=== PATIENT | female | born 1985 | race Caucasian/White ===

== ENCOUNTER 2019-05-10 09:47 | Emergency (ER) | payer SELFPAY ==
[~2019-05-10] VITALS: Ht 160 cm; Wt 114.3 kg
[2019-05-10 10:01] VITALS: BP_SYST 127
--- NOTE | 2019-05-10 10:04 | NUR ---
Patient to ER bed 07 to gown for evaluation. Side rails up.
--- NOTE | 2019-05-10 10:05 | NUR ---
Patient arrived in the ED c/o lower back pain that started yesterday, pain severity 11/07. Denied any fevers or chills. Denied any UTI symptoms. Denied any recent trauma or falls. Patient stated she was lifting some boxes yesterday and moving in [id number] when she felt the pain, Taking Ibuprofen for the pain. Patient is alert and oriented x4, respirations even and unlabored, speaking in full sentences, ambulating with a steady gait. VS WNL. Denied any respiratory distress at this time. Informed of the wait time. Instructed to notify ED staff for any changes in condition while waiting to be seen by a provider. Patient verbalized understanding.
--- NOTE | 2019-05-10 10:08 | NUR ---
ER at bedside examining patient.
--- NOTE | 2019-05-10 10:10 | NUR ---
Patient given written and verbal discharge instructions and verbalizes understanding. ER MD discussed with patient the results and treatment provided. Patient in stable condition. ID arm band removed. Rx of Tramadol and Naproxen given. Patient educated on pain management and to follow up with PMD. Pain Scale 0/10. Opportunity for questions provided and answered. Medication side effect fact sheet provided.
[2019-05-10 10:21] VITALS: BP_SYST 127
== END 2019-05-10 10:21 | disposition home or self-care (01) ==
LOC: SED 09:47
DX: S39.012A Strain of muscle, fascia and tendon of lower back, initial encounter (principal); X50.0XXA Overexertion from strenuous movement or load, initial encounter; Y93.89 Activity, other specified; Y92.89 Other specified places as the place of occurrence of the external cause; Y99.8 Other external cause status
CPT/HCPCS: 99283